=== PATIENT | female | born 1965 | race Asian ===

== ENCOUNTER → 2016-08-03 | Outpatient (CLI) | payer BC | LOC: BMCIMAGING 10:35 | PROVIDERS: ATTEND Nurse Practitioner Adult Health | DX: Z13.820 Encounter for screening for osteoporosis (principal); M25.521 Pain in right elbow ==

== ENCOUNTER → 2016-08-17 | Outpatient (CLI) | payer BC | LOC: BMCIMAGING 09:32 | PROVIDERS: ATTEND Podiatrist Foot & Ankle Surgery | DX: M79.671 Pain in right foot (principal); M79.672 Pain in left foot ==